=== PATIENT | female | born 1970 | race Caucasian/White ===

== ENCOUNTER 2016-12-01 18:30 | Emergency (ER) | payer OTHER ==
--- NOTE | 2016-12-01 18:41 | DR.GENAD ---
HPI - PCP Primary Care Physician: [id number] - Nurses notes reviewed Nurses Notes Review: Yes - Source History Provided: Patient - Mode of Arrival Mode of Arrival: Stretcher - Timing Came on: Suddenly - Duration Duration: Intermittent How lon Duration: Minutes - Location Location: jaw to chest - Severity Severity: Moderate - Modifying Factors Worsens:: unknown - Associated Signs and Symptoms Associated Signs and Symptoms: anxiety PMH - PMH Past Medical History: Diabetes, Hypertension, Sleep Apnea Past Surgical History: Yes - Social History Does patient currently use any type of tobacco product: No Do you use any recreational Drugs:: No - infectious screening In the last 2 months have you had wt loss of >10#?: NO Have you traveled outside the country in the last 6 months?: No ROS - Review of Systems Constitutional: No Symptoms Reported Eyes: No Symptoms Reported ENTM: No Symptoms Reported Respiratoy: Short of Breath Cardiovascular: Chest Pain Gastrointestinal/Abdominal: No Symptoms Reported Genitourinary: No Symptoms Reported Neurological: No Symptoms Reported Musculoskeletal: No Symptoms Reported Integumentary: No Symptoms Reported Hematologic/Lymphatic: No Symptoms Reported Endocrine: No Symptoms Reported Psychiatric: Anxiety All Other Systems: Reviewed and Negative PE - Vital Signs Vitals: Temperature 97.9 F Pulse Rate 74 Respiratory Rate 22 Blood Pressure 130/70 O2 Sat by Pulse Oximetry 98 - General Limitations: No Limitations General Appearance: Alert - Head Head Exam: Normal Inspection - Eyes Eye exam: Normal Appearance, EOMI. negative: Scleral Icterus, Conjunctival Injection - ENT ENT Exam: Normal Exam, Normal Oropharynx Nose Exam: Normal Nose Exam Mouth Exam: Normal Inspection - Neck Neck Exam: Normal Inspection, Full ROM, Trachea Midline - Chest Chest Inspection: Normal Inspection - Respiratory Respiratory Exam: Normal Lung Sounds Bilat. negative: Accessory Muscle Use, Respiratory Distress Respiratory Exam: Bilateral Clear to Auscultation - Cardiovascular Cardiovascular Exam: Regular Rate - Abdominal Exam Abdominal Exam: Normal Inspection, Normal Bowel Sounds, Soft, Distention (obese) . negative: Tenderness, Guarding - Extremities Extremities Exam: Normal Inspection, Full ROM. negative: Tenderness - Neurologic Neurological Exam: Alert, Oriented X3, CN II-XII Intact - Psychiatric Psychiatric Exam: Anxious - Skin Skin Exam: Intact, Normal Color ROR - Labs Reviewed Result Diagrams: 12/01/16 19:15 12/01/16 19:15 Laboratory: WBC 6.4 X10^3/uL (3.6-10.0) 12/01/16 19:15 RBC 3.81 X10^6/uL (3.5-5.4) 12/01/16 19:15 Hgb 10.4 g/dL (12.0-16.0) L 12/01/16 19:15 Hct 31.0 % (36.0-47.0) L 12/01/16 19:15 MCV 81.3 fL (80.0-100.0) 12/01/16 19:15 MCH 27.4 pg (27.0-34.0) 12/01/16 19:15 MCHC 33.7 g/dL (33.0-35.0) 12/01/16 19:15 RDW 17.0 % (11.6-16.5) H 12/01/16 19:15 Plt Count 227 X10^3/uL (150.0-450.0) 12/01/16 19:15 Plt Count Comment Adequate (ADEQUATE) 12/01/16 19:15 MPV 7.4 fL (7.4-11.0) 12/01/16 19:15 Neut % 71.8 % (42.0-75.0) 12/01/16 19:15 Lymph % 17.2 % (21.0-51.0) L 12/01/16 19:15 [place] % 6.6 % (0.0-13.0) 12/01/16 19:15 Eos % 3.1 % (0.9-2.9) H 12/01/16 19:15 Baso % 1.3 % (0.2-1.0) H 12/01/16 19:15 Neut # 4.6 x10^3/uL (2.2-4.8) 12/01/16 19:15 Lymph # 1.1 X10^3/uL (1.3-2.9) L 12/01/16 19:15 [place] # 0.4 x10^3/uL (0.3-0.8) 12/01/16 19:15 Eos # 0.2 x10^3/uL (0.0-0.2) 12/01/16 19:15 Baso # 0.1 X10^3/uL (0.0-0.1) 12/01/16 19:15 Absolute Nucleated RBC 0.1 /100WBC 12/01/16 19:15 Total Counted 100 12/01/16 19:15 Neutrophils % (Manual) 66 % (39-76) 12/01/16 19:15 Lymphocytes % (Manual) 24 % (13-43) 12/01/16 19:15 Monocytes % (Manual) 6 % (4-9) 12/01/16 19:15 Eosinophils % (Manual) 4 % (0-6) 12/01/16 19:15 Plt Morphology Comment Normal (NORMAL) 12/01/16 19:15 RBC Morphology Normal (NORMAL) 12/01/16 19:15 INR Target Range - 12/01/16 19:15 INR 1.03 (0.8-1.3) 12/01/16 19:15 PTT 25.5 SECONDS (22.9-36.5) 12/01/16 19:15 PTT Comment - 12/01/16 19:15 Sodium 143 mmol/L (136-145) 12/01/16 19:15 Corrected Sodium TNP 12/01/16 19:15 Potassium 3.9 mmol/L (3.5-5.1) 12/01/16 19:15 Chloride 108 mmol/L (98-107) H 12/01/16 19:15 Carbon Dioxide 27.8 mmol/L (21-32) 12/01/16 19:15 BUN 9 mg/dL (7-18) 12/01/16 19:15 Creatinine 0.97 mg/dL (0.55-1.02) 12/01/16 19:15 Est GFR (MDRD) Af Amer > 60 (>60) 12/01/16 19:15 Est GFR (MDRD) Non-Af > 60 (>60) 12/01/16 19:15 Glucose 101 mg/dL (65-99) H 12/01/16 19:15 Calcium 8.0 mg/dL (8.5-10.1) L 12/01/16 19:15 Corrected Calcium 9.0 mg/dL (8.5-10.1) 12/01/16 19:15 Magnesium 1.7 mg/dL (1.7-2.9) 12/01/16 19:15 Total Bilirubin 0.20 mg/dL (0.2-1.0) 12/01/16 19:15 AST 24 Units/L (15-37) 12/01/16 19:15 ALT 18 Units/L (12-78) 12/01/16 19:15 Alkaline Phosphatase 88 Units/L (46-116) 12/01/16 19:15 Creatine Kinase 81 Units/L (26-192) 12/01/16 19:15 CK-MB (CK-2) < 1.0 ng/mL (0-4.0) 12/01/16 19:15 CK/CKMB % Calc 1.2 % (<4) 12/01/16 19:15 Troponin I < 0.02 ng/mL (0-1.5) 12/01/16 23:00 B-Natriuretic Peptide 164 pg/mL (0-79) H 12/01/16 19:15 Total Protein 6.5 g/dL (6.4-8.2) 12/01/16 19:15 Albumin 2.8 g/dL (3.4-5.0) L 12/01/16 19:15 Globulin 3.7 g/dL (2.5-4.5) 12/01/16 19:15 Albumin/Globulin Ratio 0.8 Ratio (1.1-2.1) L 12/01/16 19:15 - XRAY XRAY Interpreted by: Radiologist XRAY Findings: chest: normal - EKG Rate: 77 [place]: Normal Rhythm: NSR Block: None Hypertrophy: None ST: Nonsp - Diagnosis Discharge Problem: Chest pain Qualifiers: Chest pain type: precordial pain Qualified Code(s): R07.2 - Precordial pain - Discharge Plan Condition: Stable Prescriptions: Clopidogrel Bisulfate [PLAVIX TAB 75 MG *] 75 mg PO DAILY #30 tab - Follow ups/Referrals Follow ups/Referrals: [facility],None [Primary Care Provider] - 3 days - Instructions Instructions: Nonspecific Chest Pain
[2016-12-01 18:49] VITALS: BMI 47.1
[2016-12-01 19:26] LABS: BASOPHILS # (AUTO) 0.1 X10^3/uL (0.0-0.1); BASOPHILS % (AUTO) 1.3 % (0.2-1.0); EOSINOPHILS # (AUTO) 0.2 x10^3/uL (0.0-0.2); EOSINOPHILS % (AUTO) 3.1 % (0.9-2.9); HEMOGLOBIN 10.4 g/dL (12.0-16.0); LYMPHOCYTES # (AUTO) 1.1 X10^3/uL (1.3-2.9); LYMPHOCYTES % (AUTO) 17.2 % (21.0-51.0); MEAN CORPUSCULAR HEMOGLOBIN 27.4 pg (27.0-34.0); MEAN CORPUSCULAR HGB CONC 33.7 g/dL (33.0-35.0); MEAN CORPUSCULAR VOLUME 81.3 fL (80.0-100.0); MEAN PLATELET VOLUME 7.4 fL (7.4-11.0); MONOCYTES # (AUTO) 0.4 x10^3/uL (0.3-0.8); MONOCYTES % (AUTO) 6.6 % (0.0-13.0); NEUTROPHILS # (AUTO) 4.6 x10^3/uL (2.2-4.8); NEUTROPHILS % (AUTO) 71.8 % (42.0-75.0); PLATELET COUNT 227 X10^3/uL (150.0-450.0); RED BLOOD COUNT 3.81 X10^6/uL (3.5-5.4); WHITE BLOOD COUNT 6.4 X10^3/uL (3.6-10.0)
[2016-12-01 19:36] LABS: PLATELET MORPHOLOGY COMMENT NORMAL (NORMAL)
--- NOTE | 2016-12-01 19:37 | RAD ---
HISTORY: Chest pain Study: Single view chest. Comparison: None. Findings: The trachea is midline. The cardiac silhouette is unremarkable. The underinflated lungs are clear without focal infiltrate or effusion. The bony thorax is unremarkable. IMPRESSION: 1. No acute cardiopulmonary disease. Reported By:
[2016-12-01 19:39] LABS: B-TYPE NATRIURETIC PEPTIDE 164 pg/mL (0-79)
[2016-12-01 19:40] LABS: BLOOD UREA NITROGEN 9 mg/dL (7-18); CARBON DIOXIDE 27.8 mmol/L (21-32); CHLORIDE 108 mmol/L (98-107); CREATININE 0.97 mg/dL (0.55-1.02); GLUCOSE 101 mg/dL (65-99); SODIUM 143 mmol/L (136-145); TROPONIN I < 0.02 ng/mL (0-1.5); eGFR BLACK RACES > 60 (>60); eGFR NON BLACK RACES > 60 (>60)
[2016-12-01 19:44] LABS: ALANINE AMINOTRANSFERASE 18 Units/L (12-78); ALBUMIN 2.8 g/dL (3.4-5.0); ALKALINE PHOSPHATASE 88 Units/L (46-116); ASPARTATE AMINO TRANSFERASE 24 Units/L (15-37); CKMB % 1.2 % (<4); CREATINE KINASE 81 Units/L (26-192); CREATINE KINASE MB < 1.0 ng/mL (0-4.0); MAGNESIUM 1.7 mg/dL (1.7-2.9); TOTAL PROTEIN 6.5 g/dL (6.4-8.2)
[2016-12-01] MEDS ORDERED: PLAVIX ONE (23:28)
[2016-12-01] MEDS ORDERED: PLAVIX PO ONE (23:28)
[2016-12-01 23:36] VITALS: BP 116/72
== END 2016-12-01 23:36 | disposition home or self-care (01) ==
LOC: ER 18:48
DX: R07.2 Precordial pain (principal)
CPT/HCPCS: 36415; 71010; 80053; 82550; 82553; 83735; 83880; 84484; 85025; 85610; 85730; 93005; 93010; 99283; 99285